=== PATIENT | male | born 1950 | race Caucasian/White ===

== ENCOUNTER → 2018-02-13 | Outpatient (CLI) | payer OTHER, MEDICARE | LOC: FIMAGING 08:32 | PROVIDERS: ATTEND Orthopaedic Surgery | DX: M17.11 Unilateral primary osteoarthritis, right knee (principal); M23.41 Loose body in knee, right knee; M85.661 Other cyst of bone, right lower leg ==

== ENCOUNTER 2018-03-13 06:49 | Inpatient (IN) | payer OTHER, MEDICARE ==
[~2018-03-13 06:49] MED LIST: ROPIVACAINE 0.2% 80 MG, EPINEPHrine 0.2 MG, KETOROLAC TROMETHAMINE 30 MG in SYRINGE 0 ML IU ONE; TRANEXAMIC ACID 3,000 MG in NS (SYRINGE) 50 ML IRR ONE
--- NOTE | 2018-03-13 07:13 | PDHPUP ---
History & Physical Update H&P update statement: This history and physical update is based on an assessment of the patient which was completed after admission or registration (within 24 hours), but prior to the surgery/procedure. H&P update: H&P reviewed & patient examined, no change in patient's condition since H&P completed
[2018-03-13] MEDS ORDERED: DEXAMETHASONE 4 MG/ML VIAL IVP ONE (07:17)
[2018-03-13] MEDS ORDERED: FAMOTIDINE 20 MG TAB PO ONE (07:17)
[2018-03-13] MEDS ORDERED: ceFAZolin 2 GM/DEXTROSE 100 ML IV ONE (07:17)
[2018-03-13] MEDS ORDERED: ACETAMINOPHEN 325 MG TAB PO ONE (07:17)
[2018-03-13] MEDS ORDERED: LR 1,000 ML IV ONE (07:18)
[2018-03-13] MEDS ORDERED: TRANEXAMIC ACID 3,000 MG/50 ML BAG IRR ONE (07:28)
--- NOTE | 2018-03-13 09:00 | PDANEPAE ---
ANE History of Present Illness R TKA ANE Past Medical History - Cardiovascular History Hx Hypertension: Yes Hx Arrhythmias: No Hx Chest Pain: No Hx Coronary Artery / Peripheral Vascular Disease: No Hx CHF / Valvular Disease: No Hx Palpitations: No - Pulmonary History Hx COPD: No Hx Asthma/Reactive Airway Disease: No Hx Recent Upper Respiratory Infection: No Hx Oxygen in Use at Home: No Hx Sleep Apnea: No Sleep Apnea Screening Result - Last Documented: Positive - Neurologic History Hx Cerebrovascular Accident: No Hx Seizures: No Hx Dementia: No - Endocrine History Hx Diabetes: No - Renal History Hx Renal Disorders: No - Liver History Hx Hepatic Disorders: No - Neurological & Psychiatric Hx Hx Neurological and Psychiatric Disorders: No - Cancer History Hx Cancer: No - Congenital Disorder History Hx Congenital Disorders: No - GI History Hx Gastrointestinal Disorders: Yes Gastrointestinal History Comment: INTERMITTENT HEARTBURN. OCCASIONALLY ECZEMA - Other Health History Other Health History: OSTEOARTHRITIS. DVT LE POST KNEE SCOPE - Chronic Pain History Chronic Pain: Yes (RT KNEE) - Surgical History Prior Surgeries: LT ING HERNIA 01/2018 AT [facility]. SHELBY LAMINECTOMY. LUMBAR FUSION L4-5. RT KNEE SCOPES AND ACL REPAIR. LT ACHILLES TENDON. RT SHLDR SCOPE. RT ING HERNIA ANE Review of Systems Review of Systems: - Exercise capacity METS (RN): 4 METS ANE Patient History - Allergies Allergies/Adverse Reactions: Sulfa (Sulfonamide Antibiotics) Allergy (Verified 02/05/18 10:59) "Joint swelling/Pain" - Home Medications Home Medications: Losartan Potassium [Cozaar 50 mg (*)] 50 mg PO DAILY 02/05/18 [Last Taken ] Zolpidem Tartrate [Ambien] 10 mg PO HS 02/05/18 [Last Taken 03/12/18] Ranitidine HCl [Zantac 75] 75 mg PO DAILY PRN 02/08/18 [Last Taken 03/13/18 05: 30] - NPO status NPO Status: no food or drink >8 hours NPO Since - Liquids (Date): 03/12/18 NPO Since - Liquids (Time): 21:00 NPO Since - Solids (Date): 03/12/18 NPO Since - Solids (Time): 21:00 - Anes Hx Anes Hx: no prior problems - Smoking Hx Smoking Status: Former smoker - Alcohol Use Alcohol Use: None - Family Anes Hx Family Anes Hx: none ANE Labs/Vital Signs - Vital Signs Blood Pressure: 142/79 Heart Rate: 62 Respiratory Rate: 15 O2 Sat (%): 96 Height: 177.8 cm Weight: 82.1 kg ANE Physical Exam - Airway Neck exam: FROM Mallampati Score: Class 2 Mouth exam: normal dental/mouth exam - Pulmonary Pulmonary: no respiratory distress, clear to auscultation - Cardiovascular Cardiovascular: regular rate and rhythym, no murmur, rub, or gallop - ASA Status ASA Status: II ANE Anesthesia Plan Anesthesia Plan: GA with mask, spinal Regional Anesthesia: single shot NB, adductor canal FNB Total IV Anesthesia: Yes
[2018-03-13] MEDS ORDERED: MIDAZOLAM 2 MG/2 ML VIAL IVP ONE (09:01)
[2018-03-13] MEDS ORDERED: MIDAZOLAM 2 MG/2 ML VIAL ONE (09:03)
[2018-03-13] MEDS ORDERED: PROPOFOL/EMULSION 500 MG/50 ML BOTTLE IV ONE (09:08)
[2018-03-13] MEDS ORDERED: ROPIVACAINE HCL 150 MG/30 ML INJ ONE (09:41)
[2018-03-13] MEDS ORDERED: clonIDINE 1 MG/10 ML VIAL EP ONE (09:41)
[2018-03-13] MEDS ORDERED: PROPOFOL 200 MG/20 ML VIAL ONE ×2 (10:20→10:21)
[2018-03-13] MEDS ORDERED: DIPHENOXYLATE/ATROPINE LOMOTIL 1 TAB PO PRN (10:44)
[2018-03-13] MEDS ORDERED: METOCLOPRAMIDE 10 MG/2 ML VIAL IVP PRN (10:44)
[2018-03-13] MEDS ORDERED: TEMAZEPAM 15 MG CAP PO PRN (10:44)
[2018-03-13] MEDS ORDERED: LACTULOSE 20 GM/30 ML UDCUP PO PRN (10:44)
[2018-03-13] MEDS ORDERED: PROMETHAZINE HCL 25 MG SUPPR PR PRN (10:44)
[2018-03-13] MEDS ORDERED: ONDANSETRON DISINTEGRATING 4 MG TAB PO PRN (10:44)
[2018-03-13] MEDS ORDERED: ONDANSETRON 4 MG/2 ML VIAL IVP PRN ×2 (10:44→10:52)
[2018-03-13] MEDS ORDERED: PROMETHAZINE HCL 25 MG/ML INJ IVP PRN (10:44)
[2018-03-13] MEDS ORDERED: MAGNESIUM HYDROXIDE 30 ML UDCUP PO PRN (10:44)
[2018-03-13] MEDS ORDERED: POLYETHYLENE GLYCOL 3350 17 GM PKT PO PRN (10:44)
[2018-03-13] MEDS ORDERED: BISACODYL 10 MG SUPP PR PRN (10:44)
[2018-03-13] MEDS ORDERED: diphenhydrAMINE 25 MG CAP PO PRN (10:44)
--- NOTE | 2018-03-13 10:44 | POSTOPPROG ---
Post Op Note Date of Operation: 03/13/18 Surgeon: Karla Akers [employer] Vehicle [employer] Supervisor: yoel akers Anesthesiologist: dr. borden Anesthesia: Spinal, Other (Specify) (adductor canal block) Pre-op Diagnosis: right knee OA Post-op Diagnosis: same Indication: right knee pain Procedure: R TKA robot assisted, sensor assisted Findings: severe knee OA Inf/Abcess present in the surg proc area at time of surgery?: No EBL: 50-100
[2018-03-13] MEDS ORDERED: NALOXONE HCL 0.4 MG/ML INJ IVP PRN (10:52)
[2018-03-13] MEDS ORDERED: HYDROCODONE/APAP 5/325 TAB PO PRN (10:52)
[2018-03-13] MEDS ORDERED: ACETAMINOPHEN 500 MG TAB PO PRN (10:52)
[2018-03-13] MEDS ORDERED: fentaNYL 100 MCG/2 ML INJ IVP PRN (10:52)
[2018-03-13] MEDS ORDERED: oxyCODONE IR 5 MG TAB PO PRN (10:52)
[2018-03-13] MEDS ORDERED: HYDROmorphONE/DILAUDID 2 MG/ML INJ IVP PRN (10:52)
--- NOTE | 2018-03-13 10:53 | POSTANESTH ---
Post Anesthetic Evaluation Cardiovascular Status: Normal, Stable, Similar to Pre-Op Cond Respiratory Status: Normal, Stable, Similar to Pre-op Cond. Level of Consciousness/Mental Status: Can Participate in Eval, Alert and Oriented Pain Control: Adequate, Prn Tx Ordered Nausea/Vomiting Control: Adequate, Prn Tx Ordered Complications Possibly Related to Anesthesia: None Noted
[2018-03-13] MEDS ORDERED: LR 1,000 ML IV SCH (11:00)
--- NOTE | 2018-03-13 12:45 | PDMN ---
Medical Necessity Medical necessity: Pt meets IP criteria per PA & MCG S-700; est los >2 mn s/p R TKA (cpt 57777); requiring further monitoring, post-op knee scope & therapies; comorbid advanced age, DVT; per order 03/13/18
[2018-03-13] MEDS: ACETAMINOPHEN 325 MG TAB PO SCH ×2 (13:30→18:08)
[2018-03-13] MEDS ORDERED: WARFARIN SODIUM 5 MG TAB PO SCH (16:00)
[2018-03-13] MEDS: ceFAZolin 2 GM/DEXTROSE 100 ML IV SCH (16:30)
[2018-03-13] MEDS: CYCLOBENZAPRINE 10 MG TAB PO PRN (16:31)
[2018-03-13] MEDS: oxyCODONE IR 5 MG TAB PO PRN ×2 (16:31→20:26)
[2018-03-13] MEDS: FAMOTIDINE 20 MG TAB PO SCH (20:29)
[2018-03-13] MEDS: SENNOSIDES/DOCUSATE SODIUM TAB PO SCH (20:29)
[2018-03-13] MEDS ORDERED: ZOLPIDEM TARTRATE 5 MG TAB PO SCH (21:00)
[2018-03-14] MEDS: ACETAMINOPHEN 325 MG TAB PO SCH ×2 (00:01→05:49)
[2018-03-14] MEDS: oxyCODONE IR 5 MG TAB PO PRN ×4 (00:05→09:14)
[2018-03-14] MEDS: ceFAZolin 2 GM/DEXTROSE 100 ML IV SCH (00:07)
[2018-03-14] MEDS: CYCLOBENZAPRINE 10 MG TAB PO PRN (01:07)
[2018-03-14 05:32] LABS: INR 1.21 (0.83-1.16); PROTIME(PATIENT) 15.5 SEC (12.0-15.0)
--- NOTE | 2018-03-14 08:28 | GOP ---
DATE OF OPERATION: 03/13/18 SURGEON: Marvin Schwarz MD NEUROSURGEON: Marvin Schwarz MD SUPERVISOR POST WAVE: [place] Antonio ANESTHESIA: Spinal. PREOPERATIVE DIAGNOSIS: Right osteoarthritis. POSTOPERATIVE DIAGNOSIS: Right osteoarthritis. PROCEDURE PERFORMED: Right total knee arthroplasty with computer navigation, robotic assist. FINDINGS: ESTIMATED BLOOD LOSS: 30 cc. INDICATIONS: The patient is a 67-year-old gentleman with severe and progressive pain and deformity of the right knee unresponsive to conservative care. The risks and benefits of surgical intervention were explained in detail. DESCRIPTION OF PROCEDURE: The patient was brought to the operative room and placed on the table in the supine position. Spinal anesthesia was induced without difficulty. A pneumatic tourniquet was applied about the right proximal thigh, and the leg was prepped and draped in a sterile fashion. The leg rios was applied. After exsanguination by elevation the tourniquet was inflated to 250 mmHg. Incision was made anterior medial from the tibial tuberosity to a point 2 cm proximal to the superior pole of the patella. Medial parapatellar arthrotomy was carried out from the superior pole of the patella and posteriorly in line with the fibers of the Type II VMO. The medial collateral ligament was elevated and the infrapatellar fat pad was resected. Pathology severe.tricompartmental compartmental osteoarthritis. The patella was everted and the articular surface was excised. A 38 mm patellar button size 6 was placed. Attention was turned first to the distal aspect of the femur. After exposure of the femur, 2 half pins were placed for fixation of the femoral array. In a similar fashion, 2 pins were placed anteromedial on the tibia for fixation of the tibial array. External land marking and registration of the hip center was performed without difficulty. Internal femoral and tibial registration was carried out without difficulty and the femoral and tibial checkpoints were placed and verified for accuracy. Attention was turned to the femur. The foot print for the size 6 femoral component was cut with the saw using the [employer] robotic system and verified for accuracy against the CT based plan. In a similar fashion, the saw was used to cut the footprint for the size 6 tibial component using the [employer] system and verified for accuracy against the CT based plan. The tibial articular surface was excised without difficulty, followed by the intercondylar box cut. The knee was extended and the remnants of the medial and lateral meniscus were excised. The posterior capsule was injected with ropivacaine, epinephrine and Toradol. A size 6 tibial tray was positioned. Trial reduction was then carried out. There was excellent range of motion, alignment, and stability using the 6 x 9 mm polyethylene. All trials were then removed. The joint was thoroughly irrigated and carefully dried. The Press-Fit components were implanted. ACL screw was removed from the tibia. The permanent 9 mm polyethylene was placed without difficulty. The tourniquet was deflated and all bleeders were coagulated. The wound was thoroughly irrigated and closed using interrupted sutures of 2-0 Vicryl for the joint capsule. The subcu was closed with 3-0 Vicryl and the skin with 4-0 Monocryl. Dermabond and Steri-Strips were applied followed by a compressive dressing. The patient was then moved from the operating room to the recovery room in good condition, having tolerated the procedure well. /[id number]/MODL MTDD
--- NOTE | 2018-03-14 08:50 | SOAPPROG ---
SOAP Progress Note Assessment/Plan: Assessment: Patient is doing well POD 1 s/p R TKA Pain management: pain is well controlled on oral pain meds. VTE ppx: recommend coumadin and lovenox, cont MICHELLE and SCDs Anemia: level is expected initially postop. Asymptomatic. Continue to monitor D/c planning: d/c to home today pending release from PT Plan: 03/14/18 08:49 Subjective: patient is doing well, denies SOb, chest pain and N/V Objective: Vital Signs Temp Pulse Resp BP Pulse Ox 37.0 C 74 16 133/78 H 97 03/14/18 03:17 03/14/18 03:17 03/14/18 03:17 03/14/18 03:17 03/14/18 03:17 Laboratory Results 03/14/18 05:11 03/13/18 03/14/18 03/15/18 05:59 05:59 05:59 Intake Total 4080 Output Total 2625 Balance 1455 PT 15.5 SEC (12.0-15.0) H 03/14/18 05:11 INR 1.21 (0.83-1.16) H 03/14/18 05:11 RLE: incision dressing is clean and dry, NVI, +pf/df ICD10 Worksheet Patient Problems: Problems Problem Status Onset Primary localized osteoarthritis of right knee Acute
[2018-03-14] MEDS ORDERED: ENOXAPARIN 40 MG/0.4 ML SYR SC SCH (09:00)
[2018-03-14] MEDS ORDERED: LOSARTAN POTASSIUM 50 MG TAB PO SCH (09:00)
[2018-03-14 09:02] VITALS: BP 127/77
[2018-03-14] MEDS: FAMOTIDINE 20 MG TAB PO SCH (09:14)
[2018-03-14] MEDS: SENNOSIDES/DOCUSATE SODIUM TAB PO SCH (09:14)
--- NOTE | 2018-03-14 18:36 | GDS ---
ADMISSION DIAGNOSIS: Right knee osteoarthritis. DISCHARGE DIAGNOSIS: Right knee osteoarthritis. PROCEDURE: Right total knee arthroplasty, robotic assisted and sensory assisted VTE PROPHYLAXIS: Recommend Coumadin and Lovenox due to history of DVT replacement BRIEF DESCRIPTION OF HOSPITAL STAY: Patient was admitted for an elective joint arthroplasty. The pa yani tolerated the procedure well and has passed physical therapy. The patient was given appropriat e antibiotic prophylaxis and venous thromboembolism prophylaxis. The patient's pain was well control led on oral pain medication, patient was holding down food, and had urinated. Decision was made to d ischarge the patient. The patient was given post-operative prescriptions pre-operatively. PLAN: To follow up as scheduled in Dr. Schwarz's office on April 04 at 10:15. /[id number]/MODL
== END 2018-03-14 10:26 | disposition home or self-care (01) | DRG 470 ==
LOC: F3N 06:49 → OBSVTOIN 10:46 → F3N 12:18
PROVIDERS: ADMIT Orthopaedic Surgery; ATTEND Orthopaedic Surgery
PROC: 8E0Y0CZ Robotic Assisted Procedure of Lower Extremity, Open Approach (ICD-10-PCS; principal; 2018-03-13 08:45)
PROC: 8E0YXBZ Computer Assisted Procedure of Lower Extremity (ICD-10-PCS; principal; 2018-03-13 08:45)
PROC: 0SRC0JZ Replacement of Right Knee Joint with Synthetic Substitute, Open Approach (ICD-10-PCS; principal; 2018-03-13 08:45)
DX: M17.11 Unilateral primary osteoarthritis, right knee (principal); I10 Essential (primary) hypertension; G89.29 Other chronic pain; Z79.01 Long term (current) use of anticoagulants
CPT/HCPCS: 97110-GP; 97116-GP; 97161-GP; G8978-GP-CK; G8979-GP-CJ; J0171; J0690; J0735; J1100; J1650; J1885; J2250; J2704; J2795